=== PATIENT | male | born 1945 | race Caucasian/White ===

== ENCOUNTER 2019-10-20 19:07 | Outpatient (CLI) | payer MEDICARE, SELFPAY ==
--- NOTE | ~2019-10-20 | XR_ITS ---
XR lumbar spine 2-3V DATE: 10/20/2019 19:25 INDICATION: Lumbosacral pain. TECHNIQUE: AP, lateral, coned lateral lumbosacral views COMPARISON: None FINDINGS: There is degenerative spurring of the included lower thoracic spine. The L1-2 interspace is relatively well preserved, with mild spurring at this level. There is moderately severe degenerative disc disease at the remaining interspaces, most pronounced on the left at L2-3 and on the right at L4-5. There is mild dextro scoliosis of the lumbar spine. No fracture or bone destruction is evident. The included lower thoracic and lumbar pedicles are intac t. No spondylolisthesis. There is degenerative change at the apophyseal joints. The sacroiliac joints are intact. IMPRESSION: Mild dextroscoliosis Multilevel degenerative disc disease Reviewed, dictated and finalized at location A.
== END 2019-10-20 19:08 | disposition home or self-care (01) ==
LOC: CHSIMG 19:12
PROVIDERS: PCP Family Medicine; Visit Provider Family Medicine
DX: M54.17 Radiculopathy, lumbosacral region (principal)
CPT/HCPCS: 72100